=== PATIENT | male | born 1965 | race Caucasian/White ===

== ENCOUNTER 2016-07-14 00:52 | Emergency (ER) | payer OTHER ==
[2016-07-14 01:02] VITALS: RESP 18
[2016-07-14] MEDS ORDERED: DIAZEPAM 5 MG TAB PO STA (01:17)
--- NOTE | 2016-07-14 01:19 | ED ---
Upper Extremity HPI - General Chief Complaint: Extremity Injury, Upper Stated Complaint: Pain in both arms Time Seen by Provider: 07/14/16 01:03 Source: patient, RN notes reviewed Mode of arrival: ambulatory Limitations: no limitations - History of Present Illness Initial Comments: 51-year-old male presents emergency Department chief complaint of bilateral intermittent arm pain. Patient states this started around 2:00 this afternoon. Patient states it sometimes is that it is his only his left symptoms only his right and occasionally both arms at same time. He states that he gets shooting pain from his hand up into his elbow region. Patient states that his extremities felt weak but he states he believes is from the pain as he has not noticed any physical weakness. Patient denies any chest pain, shortness breath , headache, dizziness, blurred vision, neck pain. Patient states nothing seems to make the symptoms feel better or worse. 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 Patient has not taken any medications for this. - Related Data Previous Rx's Medication Instructions Recorded Diazepam [Valium] 5 mg PO BID #10 tab 07/14/16 Allergies Allergy/AdvReac Type Severity Reaction Status Date / Time No Known Allergies Allergy Verified 07/14/16 01:02 Review of Systems ROS Statement: Those systems with pertinent positive or pertinent negative responses have been documented in the HPI. ROS Other: All systems not noted in ROS Statement are negative. Past Medical History Past Medical History: Hyperlipidemia, Hypertension History of Any Multi-Drug Resistant Organisms: None Reported Past Surgical History: Heart Catheterization Past Psychological History: No Psychological Hx Reported Smoking Status: Never smoker Past Alcohol Use History: None Reported Past Drug Use History: None Reported General Exam Limitations: no limitations General appearance: alert, in no apparent distress ENT exam: Present: normal exam, normal oropharynx, mucous membranes moist Neck exam: Present: normal inspection, full ROM. Absent: tenderness, meningismus, lymphadenopathy Respiratory exam: Present: normal lung sounds bilaterally. Absent: respiratory distress, wheezes, rales, rhonchi, stridor Cardiovascular Exam: Present: regular rate, normal rhythm, normal heart sounds. Absent: systolic murmur, diastolic murmur, rubs, gallop, clicks Extremities exam: Present: normal inspection, full ROM, normal capillary refill , other (Full strength of upper extremities neurovascular intact). Absent: tenderness, joint swelling Back exam: Present: full ROM. Absent: tenderness Neurological exam: Present: alert, oriented X3, CN II-XII intact, reflexes normal, other (Fingers 2 nose intact bilaterally without overshooting.). Absent : motor sensory deficit Course Vital Signs 07/14/16 00:57 Temperature 98.0 F Pulse Rate 79 Respiratory 18 Rate Blood Pressure 196/101 O2 Sat by Pulse 97 Oximetry - Reevaluation(s) Reevaluation #1: 07/14/16 02:52 Patient was reevaluated this time. Patient states that his symptoms have completely resolved and he states he feels better. Medical Decision Making - Medical Decision Making 51-year-old male present emergency department with intermittent bilateral arm pain. This appears to be cervical radiculopathy. Patient feels 100% better after Valium. Patient did have some straightening of his cervical spine. Patient will be discharged with follow-up with primary care physician. Return parameters were discussed patient family agreed to plan. Disposition Clinical Impression: Cervical radiculopathy Disposition: HOME SELF-CARE Condition: Stable Instructions: Cervical Radiculopathy (ED) Additional Instructions: Please return to the Emergency Department if symptoms worsen or any other concerns. Prescriptions: Diazepam [Valium] 5 mg PO BID #10 tab Time of Disposition: 02:53
--- NOTE | 2016-07-14 02:55 | XR ---
EXAMINATION TYPE: XR cervical spine comp DATE OF EXAM: 07/14/2016 1:27 AM COMPARISON: NONE HISTORY: Numbness and tingling to both arms no injury TECHNIQUE: 6 radiographs of cervical spine were obtained. FINDINGS: The alignment of vertebral bodies and body heights and disc spaces are grossly normal. No d efinite acute fracture is noted in the cervical spine. Mild degenerative arthritic changes are sugges clifton in the lower cervical spine without significant neural foramina narrowing. Paraspinal soft tissue s appear grossly unremarkable. IMPRESSION: 1. No acute fracture or dislocation. 2. Minor or mild degenerative changes.
[2016-07-14 03:08] VITALS: BP 148/92; PULSE 74; TEMP 98.4
== END 2016-07-14 03:09 | disposition home or self-care (01) ==
LOC: EC 00:52
DX: M54.12 Radiculopathy, cervical region (principal)
CPT/HCPCS: 72050; 99283

== ENCOUNTER 2020-12-23 22:55 | Emergency (ER) | payer BC ==
[2020-12-23 22:58] VITALS: BP 162/100; PULSE 90; RESP 19; TEMP 97.3
[2020-12-23] MEDS ORDERED: cefTRIAXone 1,000 MG VIAL (IM USE) IM STA (23:08)
--- NOTE | 2020-12-23 23:12 | ED ---
General Adult HPI - General Chief complaint: Skin/Abscess/Foreign Body Stated complaint: bug bite Time Seen by Provider: 12/23/20 23:00 Source: patient, RN notes reviewed Mode of arrival: ambulatory Limitations: no limitations - History of Present Illness Initial comments: 55-year-old male presents emergency Department chief left arm bug bite. Patient states his bit by something complaints ago. Patient states he knows increased redness today and states that he noticed a small area of streaking. Denies any fevers chills night sweats denies any hip pain. He states he does not remember seen anything by his left arm. He is up-to-date on tetanus patient offers no other complaints. - Related Data Previous Rx's Medication Instructions Recorded diazePAM [Valium] 5 mg PO BID #10 tab 07/14/16 Cephalexin [Keflex] 500 mg PO Q6HR #40 cap 12/23/20 Allergies Allergy/AdvReac Type Severity Reaction Status Date / Time No Known Allergies Allergy Verified 12/23/20 22:59 Review of Systems ROS Statement: Those systems with pertinent positive or pertinent negative responses have been documented in the HPI. ROS Other: All systems not noted in ROS Statement are negative. Past Medical History Past Medical History: Hyperlipidemia, Hypertension History of Any Multi-Drug Resistant Organisms: None Reported Past Surgical History: Heart Catheterization Past Psychological History: No Psychological Hx Reported Past Alcohol Use History: None Reported Past Drug Use History: None Reported General Exam Limitations: no limitations General appearance: alert, in no apparent distress Head exam: Present: atraumatic, normocephalic, normal inspection Respiratory exam: Present: normal lung sounds bilaterally. Absent: respiratory distress, wheezes, rales, rhonchi, stridor Cardiovascular Exam: Present: regular rate, normal rhythm, normal heart sounds. Absent: systolic murmur, diastolic murmur, rubs, gallop, clicks Extremities exam: Present: other (Left bicep region there is a small punctate lesion with surrounding erythema approximately 4 cm in diameter, small area of streaking towards axilla with no palpable axilla nodes) Course Vital Signs 12/23/20 22:56 Temperature 97.3 F L Pulse Rate 90 Respiratory 19 Rate Blood Pressure 162/100 O2 Sat by Pulse 99 Oximetry Medical Decision Making - Medical Decision Making Patient has small area of cellulitis, localized reaction from some insect bite with mild lymphangitis. Patient is afebrile, no Yumiko's is night sweats. Patient we given antibiotics with close follow-up return parameters discussed. Disposition Clinical Impression: Cellulitis of skin with lymphangitis Disposition: HOME SELF-CARE Condition: Stable Instructions (If sedation given, give patient instructions): Cellulitis (DC) Additional Instructions: Please return to the Emergency Department if symptoms worsen or any other concerns. Prescriptions: Cephalexin [Keflex] 500 mg PO Q6HR #40 cap Is patient prescribed a controlled substance at d/c from ED?: No Referrals: Alissa Huffman DO [Primary Care Provider] - 1-2 days Time of Disposition: 23:11
== END 2020-12-23 23:46 | disposition home or self-care (01) ==
LOC: EC 22:55
DX: L03.114 Cellulitis of left upper limb (principal); I10 Essential (primary) hypertension; E78.5 Hyperlipidemia, unspecified; Z79.899 Other long term (current) drug therapy
CPT/HCPCS: 96372; 99282; J0696; 99283